=== PATIENT | female | born 1995 | race Asian ===

== ENCOUNTER 2017-01-29 15:08 | Emergency (ER) | payer BC ==
--- NOTE | 2017-01-30 08:23 | ER ---
ADMIT: 01/29/2017 RM/LOC: ER [facility] MR#: [id number] [address] [id number] MAUDE MCDOWELL [address] [place] [address] Emergency Room Report SEX: F AGE: 21 : 1995 DATE: 01/29/2017 TIME: 1508. PRIMARY CARE: Bora Diaz MD Please refer to my T-sheet for complete H and P. HISTORY OF PRESENT ILLNESS: Briefly, the patient is a 21-year-old who comes in with some back pain on and off. She says it hurts a little bit when she takes a deep breath. It has been going on for a week. She has been coughing and bringing up some phlegm. She does smoke, but mostly marijuana. PHYSICAL EXAMINATION: VITAL SIGNS: Blood pressure 165/82, pulse 85, respirations 18, temp 98.4, sat 94%. GENERAL: No acute distress. HEENT: Grossly normal. LUNGS: Clear. HEART: Regular. ABDOMEN: Soft. SKIN: No rash. EMERGENCY DEPARTMENT COURSE: Uneventful. ASSESSMENT: 1. Bronchitis. 2. Pleurisy. PLAN: Z-Venu, ibuprofen [id number]. Return if worse. Follow up with that, she stop smoking. Abdulaziz Rosenbaum MD/ dianna JOB #: [id number] CC: Abdulaziz Rosenbaum MD, Attending Physician Bora Diaz MD, Family Physician
== END 2017-01-29 15:50 | disposition home or self-care (01) ==
LOC: ER 15:08
DX: J40 Bronchitis, not specified as acute or chronic (principal); R09.1 Pleurisy; F17.210 Nicotine dependence, cigarettes, uncomplicated